=== PATIENT | male | born 1990 | race Caucasian/White ===

== ENCOUNTER 2021-12-18 11:36 | Emergency (ER) | payer OTHER, SELFPAY ==
[2021-12-18 11:48] VITALS: BP 182/90; PULSE 90; RESP 16; TEMP 37.3; O2SAT 100
--- NOTE | 2021-12-18 12:02 | ED.EAR ---
HPI - Ear Problem General Chief complaint: Ear Stated complaint: Left Ear Pain Time Seen by Provider: 12/18/21 12:02 Source: patient Mode of arrival: ambulatory Limitations: no limitations History of Present Illness HPI Narrative: 31-year-old male presents with complaint of clogged feeling to left ear since last night. No other complaints today. Denies pain. All systems reviewed and negative except as noted above. Review of Systems Review of Systems: CONSTITUTIONAL: Denies fever, chills, or sweats. EYES: Denies visual changes, redness, or discharge. ENT: Denies rhinorrhea, congestion, sore throat. Reports left ear clogged, no pain. CARDIOVASCULAR: Denies chest pain, palpitations, or edema. RESPIRATORY: Denies cough or dyspnea. GASTROINTESTINAL: Denies abdominal pain, nausea, vomiting, or diarrhea. GENITOURINARY: Denies dysuria or hematuria. SKIN: Denies rash or itching. MUSCULOSKELETAL: Denies back pain, joint pain, or myalgia. NEUROLOGIC: Denies headache, numbness, or weakness. PSYCHIATRIC: Denies anxiety or depression. All other systems reviewed are negative, except as documented in HPI. PMFSH Comments At time of signature, agree with nursing past medical, surgical, social and family history. There is no relevant family history pertinent to the presenting complaint. Exam Narrative: GENERAL: This is a well-nourished, well-developed patient, in no apparent distress. HEAD: normocephalic, atraumatic. EYES: PERRL. Sclera clear/white. Vision is grossly intact. EARS: External ears normal. Cerumen impacted to left ear canal. Removed with lighted curette. Left TM normal after removal. Right TM and canal normal. NOSE: External nose normal NECK: Neck supple, non-tender without lymphadenopathy, masses or thyromegaly. CARDIOVASCULAR: Regular rate and rhythm without murmurs, gallops, or rubs. RESPIRATORY: Clear to auscultation. Breath sounds equal bilaterally. No wheezes, rales, or rhonchi. SKIN: warm, Dry, intact with no suspicious lesions or rash, good texture and turgor. NEURO: awake, alert, and oriented to person, place and time. There were no obvious focal neurologic abnormalities. EXTREMITIES: No joint tenderness, effusion, or edema noted. Course Course Level of Care: Express Care Visit Vital Signs Vital signs: Vital Signs Temperature 37.3 C 12/18/21 11:48 Pulse Rate 90 12/18/21 11:48 Respiratory Rate 16 12/18/21 11:48 Blood Pressure 182/90 H 12/18/21 11:48 Pulse Oximetry 100 12/18/21 11:48 Oxygen Delivery Room Air 12/18/21 11:48 Temperature 37.3 C 12/18/21 11:48 Pulse Rate 90 12/18/21 11:48 Respiratory Rate 16 12/18/21 11:48 Blood Pressure 182/90 H 12/18/21 11:48 Pulse Oximetry 100 12/18/21 11:48 Oxygen Delivery Room Air 12/18/21 11:48 Reviewed, rechecked at discharge see final reading. Procedures FB Removal Ear Foreign Body #1: Foreign Body Removal Date: 12/18/21 Foreign Body Removal Time: 12:13 Location: ear canal (L) Foreign Body Suspected: other (Cerumen) TM intact pre-procedure: unable to visualize Foreign Body Removed: yes Foreign Body Removal Technique: curette (lighted) Tympanic Membrane Intact Post Procedure: Yes Patient Tolerated Procedure: well Complications: none Medical Decision Making MDM Narrative Medical decision making narrative: Patient is aware of diagnosis, understands and agrees to treatment plan. Anticipatory guidance given. Patient agrees to follow-up as directed and is aware of reasons to seek care at the emergency department. Portions of this record may have been created with voice recognition software Vital Signs Vital Signs: Vital Signs Temperature 37.3 C 12/18/21 11:48 Pulse Rate 90 12/18/21 11:48 Respiratory Rate 16 12/18/21 11:48 Blood Pressure 182/90 H 12/18/21 11:48 Pulse Oximetry 100 12/18/21 11:48 Oxygen Delivery Room Air 12/18/21 11:48
[2021-12-18 12:22] VITALS: BP 152/104
== END 2021-12-18 12:22 | disposition home or self-care (01) ==
PROVIDERS: Emergency Provider Nurse Practitioner Family; PCP Internal Medicine
DX: H61.22 Impacted cerumen, left ear (principal)
CPT/HCPCS: 69210; 99212; G0463